=== PATIENT | male | born 1990 | race Caucasian/White ===

== ENCOUNTER 2018-11-13 06:52 | Day surgery (SDC) | payer OTHER ==
[~2018-11-13] VITALS: Ht 160 cm; Wt 82.6 kg
[2018-11-13] MEDS ORDERED: LIDOCAINE 2% 1000 MG/50 ML VIAL INJ ONE (08:32)
[2018-11-13 08:52] LABS: PROTHROMBIN TIME 10.4 secs (10.8-13.4)
[2018-11-13] MEDS ORDERED: ACETAMINOPHEN EXTRA STRENGTH 500 MG TAB PO PRN (10:45)
== END 2018-11-13 11:25 | disposition home or self-care (01) ==
LOC: MDS 06:52 → MMU 06:55 → MDS 11:25
PROVIDERS: ATTEND Internal Medicine Gastroenterology
DX: K75.9 Inflammatory liver disease, unspecified (principal); K74.0 Hepatic fibrosis; K76.0 Fatty (change of) liver, not elsewhere classified; E66.9 Obesity, unspecified; I10 Essential (primary) hypertension; F10.21 Alcohol dependence, in remission; Z79.899 Other long term (current) drug therapy; Z87.891 Personal history of nicotine dependence; Z90.49 Acquired absence of other specified parts of digestive tract; Z68.32 Body mass index [BMI] 32.0-32.9, adult
CPT/HCPCS: 36415; 47000; 76942; 85610; 85730; 88307; 88313; J2001